=== PATIENT | female | born 1980 | race Caucasian/White ===

== ENCOUNTER 2016-10-12 18:08 | Observation (INO) | payer MEDICAID | END 2016-10-12 23:35 | disposition home or self-care (01) | LOC: L&D 18:08 | PROVIDERS: ADMIT Obstetrics & Gynecology; ATTEND Obstetrics & Gynecology | DX: O26.893 Other specified pregnancy related conditions, third trimester (principal); N85.8 Other specified noninflammatory disorders of uterus; Z3A.35 35 weeks gestation of pregnancy | CPT/HCPCS: 76805; 76818; G0378 ==